=== PATIENT | female | born 1950 | race Caucasian/White ===

== ENCOUNTER 2018-11-05 06:53 | Day surgery (SDC) | payer MEDICARE, OTHER ==
[~2018-11-05 06:53] MED LIST: Lactated Ringers 1,000 ML IV SCH; Sodium Chloride 0.9% 10 ML Syringe FLUSH PRN; ceFAZolin 2 GM in Premix Bag 1 BAG IV ONE
[2018-11-05] MEDS ORDERED: fentaNYL 100 MCG/2 ML SDV IV ONE (06:54)
[2018-11-05] MEDS ORDERED: Midazolam 1 MG/ML 2 ML SDV IV ONE (06:54)
[2018-11-05] MEDS ORDERED: Lidocaine 2% 5 ML SDV INFILT ONE (06:54)
[2018-11-05] MEDS ORDERED: Bupivacaine 0.5% 10 ML SDV INFILT ONE (06:54)
[2018-11-05] MEDS ORDERED: Ondansetron 4 MG/2 ML SDV IVPUSH ONE (06:54)
[2018-11-05] MEDS ORDERED: Propofol 200 MG/20 ML SDV IV ONE (06:54)
--- NOTE | 2018-11-05 08:27 | PCM.OPNOTE ---
- General Post-Op/Procedure Note Date of Surgery/Procedure: 11/05/18 Operative Procedure(s): amputation right 5th distal finger Findings: dry gangrene of finger tip Pre Op Diagnosis: necrosis of distal right 5th digit. Buergers disease Post-Op Diagnosis: Same Anesthesia Technique: Local, MAC Primary Surgeon: Michel Moura Anesthesia Provider: Adrian Hernandez ([facility]) Pathology: right 5th distal finger Complications: None Condition: Good Free Text/Narrative:: see dictation
[2018-11-05] MEDS ORDERED: Acetaminophen/HYDROcodone 325-5 MG Tab PO PRN (08:29)
--- NOTE | 2018-11-05 14:28 | OR ---
DATE OF OPERATION: 11/05/2018 SURGEON: Michel Moura MD PROCEDURE PERFORMED: Amputation of the right 5th distal finger. 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 DESCRIPTION OF OPERATION: After an excellent regional block and sedation was administered by Anesthesia, the patient's hand was prepped and draped in the usual sterile manner. The planned incision point which was midway down the distal phalange was identified and then a fishmouth incision was created with a #15 scalpel blade. The underlying subcu tissue was pushed back using a periosteal elevator and the phalange was transected. The distal end of the phalange was then rongeured. There were several small bleeding points controlled with electrocautery. The finger tip was then closed loosely with interrupted 3-0 nylon. Dressing was applied. Needle, sponge, and instrument counts were reported as correct. The patient was taken to recovery in good condition. /[id number] /MODL
== END 2018-11-05 09:28 | disposition home or self-care (01) ==
LOC: FB.SDS 06:53
PROVIDERS: ATTEND Surgery
DX: I96 Gangrene, not elsewhere classified (principal); I73.1 Thromboangiitis obliterans [Buerger's disease]; I10 Essential (primary) hypertension; E11.9 Type 2 diabetes mellitus without complications; J43.1 Panlobular emphysema; F17.210 Nicotine dependence, cigarettes, uncomplicated; E66.3 Overweight; Z68.30 Body mass index [BMI] 30.0-30.9, adult; Z79.82 Long term (current) use of aspirin; Z79.84 Long term (current) use of oral hypoglycemic drugs
CPT/HCPCS: 01830; 11200; 82962; J0690; J2001; J2250; J2405; J2704; J3010; J3490; J7120